=== PATIENT | male | born 1965 | race American Indian/Alaskan Native ===

== ENCOUNTER 2019-02-27 15:53 | Emergency (ER) | payer MEDICARE ==
--- NOTE | 2019-02-27 16:03 | Event Note ---
ED Screening Note Date of service: 02/27/19 Time: 15:58 ED Screening Note: This is a 53 y.o. M. that presents to the ER with suicidal thoughts. Patient was discharged from [facility]. PMH DM, HTN, HLD, and paranoid schizophrenia. Patient states he is out of medicine. Off medication for 1 month. Patient live in a transitional home. This initial assessment/diagnostic orders/clinical plan/treatment(s) is/are subject to change based on patients health status, clinical progression and re- assessment by fellow clinical providers in the ED. Further treatment and workup at subsequent clinical providers discretion. Patient/guardian urged not to elope from the ED as their condition may be serious if not clinically assessed and managed. Initial orders include: Labs
[2019-02-27 16:33] LABS: Basophils % (Auto) 0.7 % (0.0-1.8); Eosinophils % (Auto) 1.2 % (0.0-4.3); Hematocrit 39.6 % (35.5-45.6); Hemoglobin 13.5 gm/dl (11.8-15.2); Lymphocytes # (Auto) 1.1 K/mm3 (1.2-5.4); Lymphocytes % (Auto) 36.1 % (13.4-35.0); Mean Corpuscular HGB Conc 34 % (32-34); Mean Corpuscular Volume 89 fl (84-94); Monocytes # (Auto) 0.3 K/mm3 (0.0-0.8); Monocytes % (Auto) 11.4 % (0.0-7.3); Platelet Count 221 K/mm3 (140-440); Red Blood Count 4.47 M/mm3 (3.65-5.03); Red Cell Distribution Width 14.3 % (13.2-15.2)
[2019-02-27 17:03] LABS: BUN/Creatinine Ratio 14; Blood Urea Nitrogen 11 mg/dL (9-20); Calcium 9.6 mg/dL (8.4-10.2); Hemolysis Index 1
[2019-02-27] MEDS ORDERED: TYLENOL PO PRN (17:54)
[2019-02-27] MEDS ORDERED: MAG-OX PO STA (18:52)
--- NOTE | 2019-02-27 19:25 | Emergency Department Report ---
ED General Adult HPI - General Chief complaint: Medical Clearance Stated complaint: OFF MEDICATION Time Seen by Provider: 02/27/19 15:58 Source: patient, EMS (ems notes not available at time of chart dictation), RN notes reviewed, old records reviewed Mode of arrival: Ambulatory Limitations: No Limitations - History of Present Illness Initial comments: This is a 53-year-old gentleman. Patient is not known to this provider previously. The patient has a past medical history of diabetes, hypertension, high cholesterol and schizophrenia. He presents to the ER with complaint of depression and suicidality. He states that he might hurt himself but he does not have a plan. Apparently, he was just discharged from another hospital earlier on today. Patient orally asked to come to this emergency room for medication refill. He has chronic lower back pain. He denies sudden thunderclap headache. He denies chest pain and shortness of breath. Positive dry cough. No abdominal pain. No urinary symptoms. No extremity weakness or numbness. Of note, the patient appears to have a box of his belongings with him. Of note, the patient appears to be quite comfortable and calm. Patient states his depression and sensation of suicidality are constant, they are painless, they do not radiate anywhere, he states they do not have exacerbating relieving factors. -: Gradual Location: back (patient reports chronic aching paralumbar back pain present for 1-1/2 months.) Severity scale (0 -10): 0 Consistency: constant Improves with: none, immobilization - Related Data Allergies Allergy/AdvReac Type Severity Reaction Status Date / Time No Known Allergies Allergy Verified 02/27/19 18:58 ED Review of Systems ROS: Stated complaint: OFF MEDICATION Other details as noted in HPI Constitutional: denies: fever Eyes: denies: eye discharge ENT: denies: epistaxis Respiratory: cough Cardiovascular: denies: chest pain Gastrointestinal: denies: abdominal pain, nausea, vomiting Genitourinary: denies: dysuria Musculoskeletal: back pain Neurological: denies: weakness Psychiatric: depression, suicidal thoughts. denies: homicidal thoughts ED Past Medical Hx - Past Medical History Previous Medical History?: Yes Hx Hypertension: Yes Hx Diabetes: Yes Hx Psychiatric Treatment: Yes (parnoid schziophernia) Additional medical history: high cholesterol - Surgical History Past Surgical History?: Yes Additional Surgical History: left hip - Social History Smoking Status: Former Smoker Substance Use Type: None ED Physical Exam - General Limitations: No Limitations General appearance: alert, in no apparent distress - Head Head exam: Present: atraumatic, normocephalic - Eye Eye exam: Present: normal appearance, EOMI, other (visual acuity intact to finger counting, color perception, reading at a close distance). Absent: nystagmus - ENT ENT exam: Present: normal exam, normal orophraynx, mucous membranes moist, normal external ear exam - Neck Neck exam: Present: normal inspection, full ROM. Absent: tenderness, meningismus - Respiratory Respiratory exam: Present: normal lung sounds bilaterally. Absent: respiratory distress - Cardiovascular Cardiovascular Exam: Present: regular rate, normal rhythm, normal heart sounds. Absent: bradycardia, tachycardia, irregular rhythm, systolic murmur, diastolic murmur, rubs, gallop - GI/Abdominal GI/Abdominal exam: Present: soft. Absent: distended, tenderness, guarding, pulsatile mass - Rectal Rectal exam: Present: deferred - Extremities Exam Extremities exam: Present: normal inspection, full ROM, other (2+ pulses noted in the bilateral upper, lower extremities. Compartments soft. No long bony tenderness. The pelvis is stable.). Absent: pedal edema, joint swelling, calf tenderness - Back Exam Back exam: Present: normal inspection, full ROM. Absent: tenderness, CVA tenderness (R), CVA tenderness (L), paraspinal tenderness, vertebral tenderness - Neurological Exam Neurological exam: Present: alert, oriented X3, normal gait, other (Extraocular movements intact. Tongue midline. No facial droop. Facial sensation intact to light touch in the V1, V2, V3 distribution bilaterally. 5 and 5 strength in 4 extremities.. Sensation is intact to light touch in 4 extremities.). Absent: motor sensory deficit - Psychiatric Psychiatric exam: Present: suicidal ideation - Skin Skin exam: Present: warm, dry, intact, normal color. Absent: rash ED Course Vital Signs 02/27/19 02/27/19 02/27/19 15:57 17:18 19:23 Temperature 100 F H 99.1 F 98.7 F Pulse Rate 119 H 77 Respiratory 18 16 Rate Blood Pressure 135/70 121/75 [Right] O2 Sat by Pulse 98 97 Oximetry - Reevaluation(s) Reevaluation #1: 02/27/19 19:22 Differential diagnosis, including but not limited to: Depression, mood disorder, suicidality, secondary gain, malingering Assessment and plan: 53-year-old gentleman who was just evaluated at [facility] for reported suicidality, and discharged. The patient now presents with recurrent suicidality and depression. The patient's tachycardia has resolved. He does not have a fever on repeat exam. He is remarkably com fortable, and is quite cooperative. He is not agitated or belligerent. He also has a box of his belongings with him. Suspect secondary gain and/or malingering. Nevertheless, patient is placed on a 1013. We have requested screening laboratory studies which are unremarkable. Magnesium 1.6 reviewed and appreciated, and this is corrected. CK of 400 we'll decrease on its own with oral hydration, and does not require additional screening, or evaluation. He does not require IV fluids. The patient is alert and oriented, clinically sober without neck pain or neck stiffness, walks with a steady gait and has benign physical examination. EKG reviewed and appreciated, patient has not endorsed a ny signs or symptoms to suggest acute pericarditis. Current vital signs: Temperature 98.7F Blood pressure 121/75 mmHg O2 sat: 97% on room air Heart rate 77 bpm Respiratory rate 16 breaths per minute We have requested that nursing team perform a medication reconciliation. A psychiatric consultation has been requested. The case measured consultation has been requested. At this point in time, the patient does not appear to have an immediate medical contraindication to psychiatric admission, evaluation and consultation. Once medications have been reconciled, we will continue his current outpatient medications ED Medical Decision Making - Lab Data Result diagrams: 02/27/19 16:08 02/27/19 16:08 Vital Signs 02/27/19 02/27/19 15:57 17:18 Temperature 100 F H 99.1 F Pulse Rate 119 H Respiratory 18 Rate Blood Pressure 135/70 [Right] O2 Sat by Pulse 98 Oximetry Lab Results 02/27/19 02/27/19 02/27/19 Range/Units 16:08 16:08 16:08 WBC (4.5-11.0) K/mm3 RBC (3.65-5.03) M/mm3 Hgb (11.8-15.2) gm/dl Hct (35.5-45.6) % MCV (84-94) fl MCH (28-32) pg MCHC (32-34) % RDW (13.2-15.2) % Plt Count (140-440) K/mm3 Lymph % (Auto) (13.4-35.0) % Callahan % (Auto) (0.0-7.3) % Eos % (Auto) (0.0-4.3) % Baso % (Auto) (0.0-1.8) % Lymph # (1.2-5.4) K/mm3 Callahan # (0.0-0.8) K/mm3 Eos # (0.0-0.4) K/mm3 Baso # (0.0-0.1) K/mm3 Seg Neutrophils % (40.0-70.0) % Seg Neutrophils # (1.8-7.7) K/mm3 Sodium 141 (137-145) mmol/L Potassium 3.6 (3.6-5.0) mmol/L Chloride 103.0 (98-107) mmol/L Carbon Dioxide 26 (22-30) mmol/L Anion Gap 16 mmol/L BUN 11 (9-20) mg/dL Creatinine 0.8 (0.8-1.5) mg/dL Estimated GFR > 60 ml/min BUN/Creatinine Ratio 14 % Glucose 215 H (75-100) mg/dL Calcium 9.6 (8.4-10.2) mg/dL Magnesium (1.7-2.3) mg/dL Total Creatine Kinase (55-170) units/L Salicylates < 0.3 L (2.8-20.0) mg/dL Acetaminophen < 5.0 L (10.0-30.0) ug/mL Valproic Acid (50-100) ug/mL Plasma/Serum Alcohol (0-0.07) % 02/27/19 02/27/19 02/27/19 Range/Units 16:08 16:08 16:08 WBC 3.0 L (4.5-11.0) K/mm3 RBC 4.47 (3.65-5.03) M/mm3 Hgb 13.5 (11.8-15.2) gm/dl Hct 39.6 (35.5-45.6) % MCV 89 (84-94) fl MCH 30 (28-32) pg MCHC 34 (32-34) % RDW 14.3 (13.2-15.2) % Plt Count 221 (140-440) K/mm3 Lymph % (Auto) 36.1 H (13.4-35.0) % Callahan % (Auto) 11.4 H (0.0-7.3) % Eos % (Auto) 1.2 (0.0-4.3) % Baso % (Auto) 0.7 (0.0-1.8) % Lymph # 1.1 L (1.2-5.4) K/mm3 Callahan # 0.3 (0.0-0.8) K/mm3 Eos # 0.0 (0.0-0.4) K/mm3 Baso # 0.0 (0.0-0.1) K/mm3 Seg Neutrophils % 50.6 (40.0-70.0) % Seg Neutrophils # 1.5 L (1.8-7.7) K/mm3 Sodium (137-145) mmol/L Potassium (3.6-5.0) mmol/L Chloride (98-107) mmol/L Carbon Dioxide (22-30) mmol/L Anion Gap mmol/L BUN (9-20) mg/dL Creatinine (0.8-1.5) mg/dL Estimated GFR ml/min BUN/Creatinine Ratio % Glucose (75-100) mg/dL Calcium (8.4-10.2) mg/dL Magnesium (1.7-2.3) mg/dL Total Creatine Kinase (55-170) units/L Salicylates (2.8-20.0) mg/dL Acetaminophen (10.0-30.0) ug/mL Valproic Acid < 2.8 L (50-100) ug/mL Plasma/Serum Alcohol < 0.01 (0-0.07) % 02/27/19 Range/Units 17:44 WBC (4.5-11.0) K/mm3 RBC (3.65-5.03) M/mm3 Hgb (11.8-15.2) gm/dl Hct (35.5-45.6) % MCV (84-94) fl MCH (28-32) pg MCHC (32-34) % RDW (13.2-15.2) % Plt Count (140-440) K/mm3 Lymph % (Auto) (13.4-35.0) % Callahan % (Auto) (0.0-7.3) % Eos % (Auto) (0.0-4.3) % Baso % (Auto) (0.0-1.8) % Lymph # (1.2-5.4) K/mm3 Callahan # (0.0-0.8) K/mm3 Eos # (0.0-0.4) K/mm3 Baso # (0.0-0.1) K/mm3 Seg Neutrophils % (40.0-70.0) % Seg Neutrophils # (1.8-7.7) K/mm3 Sodium (137-145) mmol/L Potassium (3.6-5.0) mmol/L Chloride (98-107) mmol/L Carbon Dioxide (22-30) mmol/L Anion Gap mmol/L BUN (9-20) mg/dL Creatinine (0.8-1.5) mg/dL Estimated GFR ml/min BUN/Creatinine Ratio % Glucose (75-100) mg/dL Calcium (8.4-10.2) mg/dL Magnesium 1.60 L (1.7-2.3) mg/dL Total Creatine Kinase 447 H (55-170) units/L Salicylates (2.8-20.0) mg/dL Acetaminophen (10.0-30.0) ug/mL Valproic Acid (50-100) ug/mL Plasma/Serum Alcohol (0-0.07) % Vital Signs 02/27/19 02/27/19 02/27/19 15:57 17:18 19:23 Temperature 100 F H 99.1 F 98.7 F Pulse Rate 119 H 77 Respiratory 18 16 Rate Blood Pressure 135/70 121/75 [Right] O2 Sat by Pulse 98 97 Oximetry - EKG Data -: EKG Interpreted by Ms EKG shows normal: sinus rhythm Rate: normal - EKG Data When compared to previous EKG there are: previous EKG unavailable 02/27/19 19:25 This is a normal sinus rhythm, 74 bpm, normal axis, QTC within normal limits, borderline NE interval prolonged, EKG is not consistent with ST elevation myocardial infarction. There is no prior EKG available for comparison. Critical care attestation.: If time is entered above; I have spent that time in minutes in the direct care of this critically ill patient, excluding procedure time. ED Disposition Clinical Impression: Medical clearance for psychiatric admission Disposition: DC/TX-65 PSY HOSP/PSY UNIT Is pt being admited?: No Does the pt Need Aspirin: No Condition: Good Referrals: [facility] MD AUTUMN [Primary Care Provider] - 3-5 Days
[2019-02-27] MEDS: NORVASC PO SCH (21:52)
[2019-02-27] MEDS: BABY ASPIRIN PO SCH (21:56)
[2019-02-27] MEDS: GLUCOPHAGE PO SCH (21:57)
[2019-02-27] MEDS ORDERED: NON-FORMULARY (Metformin Hcl [Metformin] 1,000 MG) PO SCH (22:00)
[2019-02-27] MEDS ORDERED: NON-FORMULARY (Insulin Detemir [Levemir Vial] 25 UNIT) SQ SCH (22:00)
[2019-02-27] MEDS: LANTUS SUB-Q SCH (22:10)
[2019-02-28 00:18] LABS: Amphetamine Screen,Urine PRESUMPTIVE NEGATIVE; Benzodiazepines Screen,Urine PRESUMPTIVE NEGATIVE; Cannabinoid Screen,Urine PRESUMPTIVE NEGATIVE; Cocaine Screen,Urine PRESUMPTIVE NEGATIVE; Methadone Screen,Urine PRESUMPTIVE NEGATIVE; Opiate Screen,Urine PRESUMPTIVE NEGATIVE
[2019-02-28 00:19] LABS: Bacteria,Urine 1+ /HPF (Negative); Bilirubin,Urine NEG (Negative); Blood,Urine NEG (Negative); Color,Urine Yellow (Yellow); Mucus,Urine 2+ /HPF; Protein,Urine <15 mg/dL mg/dL (Negative)
[2019-02-28] MEDS ORDERED: KEFLEX PO ONE (04:38)
[2019-02-28] MEDS: HumaLOG SUB-Q SCH ×3 (08:56→17:52)
[2019-02-28] MEDS: GLUCOPHAGE PO SCH ×2 (10:30→22:30)
[2019-02-28] MEDS: NORVASC PO SCH (10:30)
[2019-02-28] MEDS: BABY ASPIRIN PO SCH (10:30)
[2019-02-28] MEDS: KEFLEX PO SCH ×2 (10:30→22:30)
--- NOTE | 2019-02-28 19:25 | Consultation ---
History of Present Illness - Reason for Consult Consult date: 02/28/19 Reason for consult: psychiatric evaluation - Chief Complaint Chief complaint: "I was released off the ACT team at [place]." 53 year old AA male seen for psychiatric evaluation in the ER. He presented to the ER via [employer] after being discharged from [place]. His chief complaint was suicidal ideation. He says the ACT team at [place] discharged him last week because of unpaid bills. He says billing has been an issue and then talked about how he was supposed to get money from sending referrals for [facility]. Speech is rapid and thought content is grandiose and illogical at times. He lives in a transitional home, [facility], and attends a day program. His sister is his payee. When asked if he is suicidal, he states "I walked it off." He says he has been on antipsychotics since age 23 and at that time, "I had a nervous breakdown." He also says he is a slow learner. He has involuntary facial movements/tongue thrusting/lip smacking. Medications and Allergies Allergies Allergy/AdvReac Type Severity Reaction Status Date / Time No Known Allergies Allergy Verified 02/27/19 18:58 Home Medications Medication Instructions Recorded Confirmed Last Taken Type Aspirin [Aspirin BABY CHEW TAB] 81 mg PO QDAY 02/27/19 02/27/19 Unknown History AtorvaSTATin [Lipitor] 40 mg PO QHS 02/27/19 02/27/19 Unknown History Divalproex ER [DepaKOTE ER] 500 mg PO QDAY 02/27/19 02/27/19 Unknown History Insulin Detemir [Levemir VIAL] 25 unit SQ QHS 02/27/19 02/27/19 Unknown History Lispro Insulin [HumaLOG] 2 unit SQ [facility] 02/27/19 02/27/19 Unknown History Ben Arnold Carbonate [Ben Arnold 450 BID 02/27/19 Unknown History Carbonate ER] Metformin HCl [metFORMIN] 1,000 mg PO BID 02/27/19 02/27/19 Unknown History Quetiapine Fumarate [Seroquel Xr] 200 mg PO HS 02/27/19 02/27/19 Unknown History amLODIPine [Norvasc] 10 mg PO DAILY 02/27/19 02/27/19 Unknown History risperiDONE [Risperdal] 4 mg PO HS 02/27/19 02/27/19 Unknown History traZODone [Desyrel] 50 mg PO QHS 02/27/19 02/27/19 Unknown History Active Meds: Active Medications Acetaminophen (Tylenol) 650 mg PO Q6HR PRN PRN Reason: Pain Amlodipine Besylate (Norvasc) 10 mg PO DAILY [facility]END[facility] S[facility] TO [facility] Last Admin: 02/28/19 10:30 Dose: 10 mg Documented by: Aspirin (Baby Aspirin) 81 mg PO QDAY [facility]END[facility] S[facility] Last Admin: 02/28/19 10:30 Dose: 81 mg Documented by: Atorvastatin Calcium (Lipitor) 40 mg PO QHS [facility] Last Admin: 02/27/19 21:57 Dose: 40 mg Documented by: Cephalexin (Keflex) 500 mg PO BID [facility] Stop: 03/04/19 05:57 Last Admin: 02/28/19 10:30 Dose: 500 mg Documented by: Divalproex Sodium (Depakote Er) 500 mg PO QDAY [facility] S[facility] Last Admin: 02/28/19 10:30 Dose: 500 mg Documented by: Haloperidol Lactate (Haldol) 5 mg IM Q6HR PRN PRN Reason: Agitation Insulin Glargine ([facility]us) [facility] Last Admin: 02/27/19 22:10 Dose: 25 units Documented by: Insulin Human Lispro (Humalog) 2 unit SUB-Q [facility] Last Admin: 02/28/19 17:52 Dose: 2 unit Documented by: Lorazepam (Ativan) 2 mg IM Q4HR PRN PRN Reason: Agitation Metformin HCl (Glucophage) 1,000 mg PO BID [facility]END[facility] Last Admin: 02/28/19 10:30 Dose: 1,000 mg Documented by: Past psychiatric history - Past Medical History Past Medical History: diabetes, hypertension - past Psychiatric treatment and history Psych: Bipolar, Schizophrenia psychiatric treatment history: long history of mental health treatment - Social History Social history: other (lives in transitional home) Mental Status Exam - Vital signs Last Vital Signs Temp 98.8 F 02/28/19 13:32 Pulse 96 H 02/28/19 10:30 Resp 20 02/28/19 13:32 BP 143/85 02/28/19 13:32 Pulse Ox 99 02/28/19 13:32 - Exam Orientation: time, place, person Affect: other (constricted) Mood: anxious Thought content: delusions, grandiose, other (SI/no HI) Thought Process: Loose Associations Perceptions: auditory, hallucinations Speech: rapid Concentration: distractible Motor activity: other (TD symptoms) Level of consciousness: alert Memory: Intact Sleep Symptoms: Difficulty Falling Asleep Appetite: increased Interaction: cooperative Results Result Diagrams: 02/27/19 16:08 02/27/19 16:08 Abnormal lab results 02/27/19 02/27/19 02/28/19 Range/Units 22:01 23:54 08:57 POC Glucose 177 H 189 H (70-105) Urine WBC (Auto) 17.0 H (0.0-6.0) /HPF 02/28/19 Range/Units 12:26 POC Glucose 174 H (70-105) Urine WBC (Auto) (0.0-6.0) /HPF All other labs normal. Assessment and Plan Assessment and plan: Impression: schizoaffective disorder, bipolar type per hx tardive dyskinesia ---discuss treatment with outpatient psychiatrist. [facility] or Ingrezza is not available. Psych will treat the presenting complaint and psychotic/manic presentation. He is established with day treatment services contact [facility] [phone] Family support(payee) is sister Betsy Boogie [phone] ck 447 UDS neg Recommendation: depakote dr 500mg bid for mood stabilization risperdal 1mg hs for psychosis ER staff to manage his medical comorbidities Hydration encouraged. Continue 1013 dispo: inpatient psychiatric facility staffed with Dr. Collins.
[2019-02-28] MEDS: LANTUS SUB-Q SCH (21:54)
[2019-02-28] MEDS: RisperDAL PO SCH (22:31)
[2019-03-01] MEDS: ATIVAN IM PRN ×2 (02:09→16:19)
[2019-03-01] MEDS: HumaLOG SUB-Q SCH ×3 (07:30→17:29)
[2019-03-01 10:26] LABS: Alanine Aminotransferase 22 units/L (7-56)
[2019-03-01] MEDS: KEFLEX PO SCH ×2 (11:15→23:35)
[2019-03-01] MEDS: BABY ASPIRIN PO SCH (11:15)
[2019-03-01] MEDS: GLUCOPHAGE PO SCH ×2 (11:52→23:34)
[2019-03-01] MEDS: NORVASC PO SCH (11:53)
--- NOTE | 2019-03-01 12:45 | Progress Note ---
Subjective - Reason for Consult Consult date: 03/01/19 Reason for consult: Psychiatry Follow-up - Chief Complaint Chief complaint: "I want more independence" 53 year old AA male seen for psychiatric evaluation in the ER. Today the patent was calm and cooperative during the assessment. He stated that he want more 'independence. He stated that he would like to handle his own money as well. He has a payee currently. Per collateral information from [employer] (Day Veterinary Laboratory Technician) at [phone], he stated that the patient is his client. He stated that patient have not been on medication in a few weeks. He stated that the patient is known to be stable if medication compliant. He stated that the patient will be seen by Dr Timmons for outpatient psy services once discharged. The patient denies SI/HI's and AVH's. He denies any side effects o f his medications. Mental Status Exam - Vital signs Last Vital Signs Temp 98.4 F 03/01/19 07:00 Pulse 76 03/01/19 11:53 Resp 18 03/01/19 07:00 BP 134/72 03/01/19 11:53 Pulse Ox 98 03/01/19 07:00 - Exam Narrative exam: MSE: Appearance: calm, cooperative Behavior: regular eye contact Speech: regular rate and tone Mood: "okay" Affect: congruent to mood Thought Process: circumstantial Thought Content: denies SI/HI's and AVH's Motor Activity: sitting up in bed, no involuntary movement noted Cognition: A/O x3 Insight: variable Judgment: variable to fair Assessment and Plan Impression: SCAD per the patient. Today the patient was calm and cooperative during the assessment. UDS is negative. DDx: Somatic Symptom DO. Substance Induced Mood DO recommendation/Plan: Reevaluate the patient's 1013 in 24 hours. Continue Depakote 500 mg PO BID for mood and Risperdal 1 mg PO HS for psychosis/mood. Discussed possible metabolic side effects of Risperdal, he verbalized understanding. Ordered baseline A1C and Lipid Panel. Dipso: If the patient's 1013 is rescinded in 24, he can follow up with Dr Timmons for outpatient psy services. . Will staff with Dr Shasta Collins.
--- NOTE | 2019-03-01 13:20 | Progress Note ---
Subjective - Reason for Consult Consult date: 03/01/19 Reason for consult: Psychiatry Follow-up - Chief Complaint Chief complaint: "I want more independence" 53 year old AA male seen for psychiatric evaluation in the ER. Today the patent was calm and cooperative during the assessment. He stated that he want more 'independence. He stated that he would like to handle his own money as well. He has a payee currently. Per collateral information from [employer] (Day Container Finishing Inspector) at [phone], he stated that the patient is his client. He stated that patient have not been on medication in a few weeks. He stated that the patient is known to be stable if medication compliant. He stated that the patient will be seen by Dr Timmons for outpatient psy services once discharged. The patient denies SI/HI's and AVH's. He denies any side effects o f his medications. Mental Status Exam - Vital signs Last Vital Signs Temp 98.4 F 03/01/19 07:00 Pulse 76 03/01/19 11:53 Resp 18 03/01/19 07:00 BP 134/72 03/01/19 11:53 Pulse Ox 98 03/01/19 07:00 - Exam Narrative exam: MSE: Appearance: calm Behavior: regular eye contact Speech: regular rate and tone Mood: "okay" Affect: congruent to mood Thought Process: circumstantial Thought Content: denies SI/HI's and AVH's Motor Activity: sitting up in bed Cognition: A/O x3 Insight: variable to fair Judgment: variable to fair n Assessment and Plan Impression: SCAD per the patient. Today the patient was calm and cooperative during the assessment. UDS is negative. DDx: Somatic Symptom DO. Substance Induced Mood DO recommendation/Plan: Reevaluate the patient's 1013 in 24 hours. Continue Depakote 500 mg PO BID for mood and Risperdal 1 mg PO HS for psychosis/mood. Discussed possible metabolic side effects of Risperdal, he verbalized understanding. Ordered baseline A1C and Lipid Panel. Dipso: If the patient's 1013 is rescinded in 24, he can follow up with Dr Timmons for outpatient psy services. . Will staff with Dr Shasta Collins.
[2019-03-01] MEDS: LANTUS SUB-Q SCH (23:21)
[2019-03-01] MEDS: RisperDAL PO SCH (23:35)
[2019-03-02] MEDS: HALDOL IM PRN ×3 (05:54→17:38)
[2019-03-02] MEDS: HumaLOG SUB-Q SCH ×2 (08:17→11:30)
[2019-03-02] MEDS: ATIVAN IM PRN ×2 (08:33→17:38)
[2019-03-02 08:45] LABS: Chol/HDL Ratio 2.14 %
--- NOTE | 2019-03-02 11:29 | Progress Note ---
Subjective - Reason for Consult Consult date: 03/02/19 Reason for consult: Psyhiatry Follow-up - Chief Complaint Chief complaint: "I want more independence" 53 year old AA male seen for psychiatric evaluation in the ER. Today the patent was calm during the assessment. The patient has loose associations and had to be redirected several times to keep him on topic. Per the staff, the patient was discussing evangelical content throughout the night. The patient was asked about his sleep, his answers were not logical. He denies SI/HI's and VH's. He stated that he see "shadows." No indications of side effects from is medications. Mental Status Exam - Vital signs Last Vital Signs Temp 98.5 F 03/02/19 08:57 Pulse 107 H 03/02/19 08:57 Resp 22 03/02/19 08:57 BP 139/90 03/02/19 08:57 Pulse Ox 97 03/02/19 08:57 - Exam Narrative exam: MSE: Appearance: calm Behavior: regular eye contact Speech: regular rate and tone Mood: "okay" Affect: congruent to mood Thought Process: loose associations Thought Content: denies SI/HI's and AH's, hyper evangelical Motor Activity: sitting up in bed, no involuntary movement noted Cognition: A/O x3 Insight: poor Judgment: variable Assessment and Plan Impression: SCAD per the patient. Today the patient was calm during the assessment. UDS is negative. DDx: Somatic Symptom DO. Substance Induced Mood DO recommendation/Plan: Continue 1013, Depakote 500 mg PO BID for mood and Risperdal 1 mg PO HS for psychosis/mood. Discussed possible metabolic side effects of Risperdal, he verbalized understanding. Dipso: The patient was referred to inpatient psy services. . Staffed with Dr Shasta Collins.
[2019-03-02] MEDS: BABY ASPIRIN PO SCH (11:31)
[2019-03-02] MEDS: KEFLEX PO SCH ×2 (11:34→23:04)
[2019-03-02] MEDS: NORVASC PO SCH (11:34)
[2019-03-02] MEDS: GLUCOPHAGE PO SCH ×2 (11:34→22:58)
[2019-03-02] MEDS: LANTUS SUB-Q SCH (23:04)
[2019-03-03] MEDS: HumaLOG SUB-Q SCH ×3 (07:36→17:30)
[2019-03-03] MEDS: GLUCOPHAGE PO SCH ×2 (11:57→22:21)
[2019-03-03] MEDS: BABY ASPIRIN PO SCH (11:57)
[2019-03-03] MEDS: KEFLEX PO SCH ×2 (11:58→22:22)
[2019-03-03] MEDS: NORVASC PO SCH (11:58)
--- NOTE | 2019-03-03 13:37 | Progress Note ---
Subjective - Reason for Consult Consult date: 03/03/19 Reason for consult: Psychiatric Follow-up Evaluation - Chief Complaint Chief complaint: "I'm okay." Patient is a 53 year old AA male seen for psychiatric follow-up evaluation in the ER. Today the patent is calm and cooperative during the assessment. He reports " my mood has been chaotic. They had to give me something to calm me down.." He continues to have loose associations and has to be redirected several times to keep him on topic. He verbalizes that his sleep has improved. He reports good appetite. He endorses A/VH's of animal noises. Per patient " I may hear a dog barking. I see animals. " Patient denies SI/HI's and delusions. Patient is compliant with medication. No indications of side effects from his medications. Mental Status Exam - Vital signs Last Vital Signs Temp 97.8 F 03/03/19 08:02 Pulse 86 03/03/19 11:58 Resp 18 03/03/19 08:02 BP 142/78 03/03/19 11:58 Pulse Ox 98 03/03/19 08:02 - Exam Narrative exam: Mental Status Exam Appearance: calm, cooperative Behavior: regular eye contact Speech: regular rate and tone Mood: "I'm okay"; labile mood Affect: congruent to mood Thought Process: loose associations, tangential/disorganized Thought Content: denies SI/HI's; + A/VH's, hyper orthodoxy Motor Activity: ambulatory Cognition: A/O x 2 ( person, place) Insight: poor Judgment: variable Assessment and Plan Impression: SCAD per the patient. Today the patient is calm and cooperative during the assessment. UDS is negative. DDx: Somatic Symptom DO. Substance Induced Mood DO Recommendation/Plan: 1. Continue 1013. 2. Continue Depakote 500 mg PO BID for mood . 3. Increase Risperdal 2 mg PO HS for psychosis/mood. Discussed possible metabolic side effects of Risperdal, patient verbalizes understanding. Disposition: The patient was referred to inpatient psy services. Will staff with Dr Shasta Collins.
[2019-03-03] MEDS: LANTUS SUB-Q SCH (22:25)
[2019-03-04] MEDS: HumaLOG SUB-Q SCH ×2 (09:04→12:06)
[2019-03-04] MEDS: GLUCOPHAGE PO SCH (11:00)
[2019-03-04] MEDS: BABY ASPIRIN PO SCH (11:00)
--- NOTE | 2019-03-04 11:12 | Progress Note ---
Subjective - Reason for Consult Consult date: 03/04/19 Reason for consult: Psychiatry Follow-up - Chief Complaint Chief complaint: "I hear the voices" 53 year old AA male seen for psychiatric evaluation in the ER. Today the patent was calm during the assessment. Today the patient continue to state that he is hearing voices from animals. He adamant about discussing "Genensis" reference the bible throughout the interview. He had to be reidirected to keep him on topic. He denies SI/HI's and VH's. No indications of side effect from his medications. Mental Status Exam - Vital signs Last Vital Signs Temp 98.6 F 03/04/19 07:00 Pulse 99 H 03/04/19 07:00 Resp 18 03/04/19 07:00 BP 158/92 03/04/19 07:00 Pulse Ox 97 03/04/19 07:00 - Exam Narrative exam: MSE: Appearance: calm Behavior: regular eye contact Speech: regular rate and tone Mood: "okay" Affect: congruent to mood Thought Process: loose associations Thought Content: denies SI/HI's and VH's, hyper cheondoism Motor Activity: sitting up in bed, no involuntary movement noted Cognition: A/O x3 Insight: poor Judgment: variable Assessment and Plan Impression: SCAD per the patient. Today the patient was calm during the assessment. UDS is negative. DDx: Somatic Bipolar DO, Schizophrenia recommendation/Plan: Continue 1013, Depakote 500 mg PO BID for mood and Risperdal 1 mg PO HS for psychosis/mood. Discussed possible metabolic side effects of Risperdal, he verbalized understanding. Dipso: The patient was accepted at [facility] for inpatient psy services. . Staffed with Dr Shasta Collins.
[2019-03-04] MEDS ORDERED: ALUM-MAG HYDROX-SIMETH 200-200-20MG/5ML PO ONE (11:25)
[2019-03-04] MEDS ORDERED: LIDOCAINE VISCOUS 2% PO ONE (11:26)
[2019-03-04] MEDS: NORVASC PO SCH (12:05)
[2019-03-04 12:06] VITALS: BP 162/92
== END 2019-03-04 12:19 ==
LOC: EEVIPCON 15:53 → ED 15:53
DX: F25.0 Schizoaffective disorder, bipolar type (principal); I10 Essential (primary) hypertension; E11.9 Type 2 diabetes mellitus without complications; E78.00 Pure hypercholesterolemia, unspecified; Z87.891 Personal history of nicotine dependence
CPT/HCPCS: 36415; 80048; 80061; 80164; 80307; 81001; 82150; 82550; 82962; 83036; 83690; 83735; 84075; 84146; 84450; 84460; 85025; 87086; 93005; 93010; 96372; 99285; A9270; J1630; J2060; 80320; G0480; J1815

== ENCOUNTER 2019-03-13 20:21 | Emergency (ER) | payer MEDICARE ==
[2019-03-13 20:35] VITALS: BP 140/83
== END 2019-03-13 20:40 | disposition left against medical advice (07) ==
LOC: ED 20:21
DX: Z76.0 Encounter for issue of repeat prescription (principal); Z53.21 Procedure and treatment not carried out due to patient leaving prior to being seen by health care provider

== ENCOUNTER 2019-03-14 01:10 | Emergency (ER) | payer MEDICARE ==
[2019-03-14 01:20] VITALS: BP 113/76
--- NOTE | 2019-03-14 03:15 | Emergency Department Report ---
ED Recheck HPI - General Chief Complaint: Medical Clearance Stated Complaint: MED REFILL Time Seen by Provider: 03/14/19 02:39 Source: patient Mode of arrival: Ambulatory Limitations: No Limitations - History of Present Illness Initial Comments: Patient is a 53-year-old male who presents the emergency room for a medication refill. Patient states that he has not had his insulin or his psychiatric medications since 03/04/19 when he was released from [facility]. States his only symptoms is that he has had some difficulty sleeping the last couple of days. pt is still getting sleep at night. Patient denies any back pain, neck pain, chest pain, headache, shortness of breath, any other symptoms. He denies any SI, HI, or hallucinations. Patient states that states that [facility] has his medications. he states [facility] is closed on the weekends. He states that they only filled his "regular medical problem" medications. He states that he is waiting for the rest of them to be delivered. He states he is taking his other medications including metformin. - Related Data Home Medications Medication Instructions Recorded Confirmed Last Taken Aspirin [Aspirin BABY CHEW TAB] 81 mg PO QDAY 02/27/19 03/14/19 03/04/19 AtorvaSTATin [Lipitor] 40 mg PO QHS 02/27/19 03/14/19 03/04/19 Divalproex ER [DepaKOTE ER] 500 mg PO QDAY 02/27/19 03/14/19 03/04/19 [place] Carbonate [Walthill 450 mg PO BID 02/27/19 03/14/19 03/04/19 Carbonate ER] Metformin HCl [metFORMIN] 1,000 mg PO BID 02/27/19 03/14/19 03/13/19 Quetiapine Fumarate [Seroquel Xr] 200 mg PO HS 02/27/19 03/14/19 02/25/19 amLODIPine [Norvasc] 10 mg PO DAILY 02/27/19 03/14/19 Unknown risperiDONE [Risperdal] 4 mg PO HS 02/27/19 03/14/19 Unknown traZODone [Desyrel] 50 mg PO QHS 02/27/19 03/14/19 03/13/19 Previous Rx's Medication Instructions Recorded Last Taken Type Insulin Detemir [Levemir VIAL] 25 unit SQ QHS #1 vial 03/14/19 Unknown Rx Lispro Insulin [HumaLOG] 2 unit SQ QAC #32 units 03/14/19 Unknown Rx Allergies Allergy/AdvReac Type Severity Reaction Status Date / Time No Known Allergies Allergy Verified 02/27/19 18:58 ED Review of Systems ROS: Stated complaint: MED REFILL Other details as noted in HPI Comment: All other systems reviewed and negative ED Past Medical Hx - Past Medical History Previous Medical History?: Yes Hx Hypertension: Yes Hx Diabetes: Yes Hx Psychiatric Treatment: Yes (parnoid schziophernia) Additional medical history: high cholesterol - Surgical History Past Surgical History?: Yes Additional Surgical History: left hip - Social History Smoking Status: Former Smoker Substance Use Type: None - Medications Home Medications: Home Medications Medication Instructions Recorded Confirmed Last Taken Type Aspirin [Aspirin BABY CHEW TAB] 81 mg PO QDAY 02/27/19 03/14/19 03/04/19 History AtorvaSTATin [Lipitor] 40 mg PO QHS 02/27/19 03/14/19 03/04/19 History Divalproex ER [DepaKOTE ER] 500 mg PO QDAY 02/27/19 03/14/19 03/04/19 History [place] Carbonate [Walth[place] 450 mg PO BID 02/27/19 03/14/19 03/04/19 History Carbonate ER] Metformin HCl [metFORMIN] 1,000 mg PO BID 02/27/19 03/14/19 03/13/19 History Quetiapine Fumarate [Seroquel Xr] 200 mg PO HS 02/27/19 03/14/19 02/25/19 History amLODIPine [Norvasc] 10 mg PO DAILY 02/27/19 03/14/19 Unknown History risperiDONE [Risperdal] 4 mg PO HS 02/27/19 03/14/19 Unknown History traZODone [Desyrel] 50 mg PO QHS 02/27/19 03/14/19 03/13/19 History Insulin Detemir [Levemir VIAL] 25 unit SQ QHS #1 vial 03/14/19 Unknown Rx Lispro Insulin [HumaLOG] 2 unit SQ QAC #32 units 03/14/19 Unknown Rx ED Physical Exam - General Limitations: No Limitations General appearance: alert, in no apparent distress - Head Head exam: Present: atraumatic, normocephalic - Eye Eye exam: Present: normal appearance, PERRL, EOMI. Absent: nystagmus, periorbital swelling, periorbital tenderness - ENT ENT exam: Present: mucous membranes moist - Respiratory Respiratory exam: Present: normal lung sounds bilaterally. Absent: respiratory distress, wheezes, rales, rhonchi, stridor, accessory muscle use, decreased breath sounds, prolonged expiratory - Cardiovascular Cardiovascular Exam: Present: regular rate, normal rhythm, normal heart sounds. Absent: systolic murmur, diastolic murmur, rubs, gallop - Neurological Exam Neurological exam: Present: alert, oriented X3 - Expanded Neurological Exam Expanded Patient oriented to: Present: person, place, time Speech: Present: fluid speech Cerebellar function: Finger to Nose: Normal, Heel to Brunson: Normal Motor strength exam: RUE: 5, LUE: 5, RLE: 5, LLE: 5 - Psychiatric Psychiatric exam: Present: normal affect, normal mood - Skin Skin exam: Present: warm, dry, intact ED Course Vital Signs 03/14/19 03/14/19 01:17 03:48 Temperature 98.6 F Pulse Rate 89 70 Respiratory 20 16 Rate Blood Pressure 113/76 O2 Sat by Pulse 97 Oximetry ED Recheck MDM - Medical Decision Making Patient is a 53-year-old male who presents the emergency room for a medication refill. Patient states that he has not had his insulin or his psychiatric medications since 03/04/19 when he was released from [facility]. States his only symptoms is that he has had some difficulty sleeping the last couple of days. pt is still getting sleep at night. Patient denies any back pain, neck pain, chest pain, headache, shortness of breath, any other symptoms. He denies any SI, HI, or hallucinations. Patient states that states that [facility] has his medications. he states [facility] is closed on the weekends. He states that they only filled his "regular medical problem" medications. He states that he is waiting for the rest of them to be delivered. He states he is taking his other medications including metformin. vitals are normal. advised pt that we do not refill psychiatric medications from the emergency department and that he needs to be seen by [facility]. these medications should be prescribed and monitored by psychiatrist. will refill pts insulin according to his MAR which was updated last week. advised pt to please take medication as you are prescribed. Please make sure that you take your blood sugar prior to using the insulin. Follow up with a primary care doctor in the next 2-3 days to receive refills of your medications and to have your medications and chronic health conditions monitored. Follow-up with the [facility] Department to receive the refills for your psychiatric medications and to have these medications monitored and your psychiatric condition monitored. Please picker your medications that you already have [facility] once they open. Return to the emergency room for any new or worsening symptoms. Critical care attestation.: If time is entered above; I have spent that time in minutes in the direct care of this critically ill patient, excluding procedure time. ED Disposition Clinical Impression: Medication refill Disposition: TO HOME OR SELFCARE Is pt being admited?: No Does the pt Need Aspirin: No Condition: Stable Additional Instructions: Please take medication as you are prescribed. Please make sure that you take your blood sugar prior to using the insulin. Follow up with a primary care doctor in the next 2-3 days to receive refills of your medications and to have your medications and chronic health conditions monitored. Follow-up with the [facility] Department to receive the refills for your psychiatric medications and to have these medications monitored and your psychiatric condition monitored. Please picker your medications that you already have waiting for you at [facility] once they open. Return to the emergency room for any new or worsening symptoms. Prescriptions: Insulin Detemir [Levemir VIAL] 25 unit SQ QHS #1 vial Lispro Insulin [HumaLOG] 2 unit SQ QAC #32 units Referrals: [facility] [Provider Group] - 2-3 Days [facility] [Outside] - 2-3 Days Forms: Work/School Release Form(ED) Time of Disposition: 03:17 Print Language: SAMI
== END 2019-03-14 03:48 | disposition home or self-care (01) ==
LOC: ED 01:10
DX: I10 Essential (primary) hypertension (principal); E11.9 Type 2 diabetes mellitus without complications; F20.0 Paranoid schizophrenia; E78.00 Pure hypercholesterolemia, unspecified; Z76.0 Encounter for issue of repeat prescription; Z79.4 Long term (current) use of insulin; Z79.899 Other long term (current) drug therapy; Z79.82 Long term (current) use of aspirin
CPT/HCPCS: 99281

== ENCOUNTER 2019-04-09 21:45 | Emergency (ER) | payer MEDICARE ==
--- NOTE | 2019-04-09 22:17 | Event Note ---
ED Screening Note Date of service: 04/09/19 Time: 22:12 ED Screening Note: This is a 53 y.o. M. that presents to the ER for medication refills. Patient states he was discharged from [facility] 3 days ago. Patient states he has insomnia and don't think he can make it until Friday. Denies SI/HI. This initial assessment/diagnostic orders/clinical plan/treatment(s) is/are subject to change based on patients health status, clinical progression and re- assessment by fellow clinical providers in the ED. Further treatment and workup at subsequent clinical providers discretion. Patient/guardian urged not to elope from the ED as their condition may be serious if not clinically assessed and man aged. Initial orders include: Labs
[2019-04-09 23:27] LABS: Hematocrit 41.4 % (35.5-45.6); Hemoglobin 13.9 gm/dl (11.8-15.2); Mean Corpuscular HGB Conc 34 % (32-34); Mean Corpuscular Volume 90 fl (84-94); Platelet Count 187 K/mm3 (140-440); Red Blood Count 4.58 M/mm3 (3.65-5.03); Red Cell Distribution Width 14.5 % (13.2-15.2)
[2019-04-09 23:47] LABS: BUN/Creatinine Ratio 13; Blood Urea Nitrogen 12 mg/dL (9-20); Calcium 9.2 mg/dL (8.4-10.2); Hemolysis Index 11
[2019-04-10 00:11] LABS: Bilirubin,Urine NEG (Negative); Blood,Urine NEG (Negative); Color,Urine Yellow (Yellow); Mucus,Urine FEW /HPF; Protein,Urine <15 mg/dL mg/dL (Negative); Urobilinogen,Urine < 2.0 mg/dL (<2.0)
--- NOTE | 2019-04-10 00:26 | Emergency Department Report ---
ED General Adult HPI - General Chief complaint: Psych Stated complaint: MH Time Seen by Provider: 04/09/19 22:12 Source: patient, EMS Mode of arrival: Ambulatory Limitations: No Limitations - History of Present Illness Initial comments: Patient presents to the emergency department from a local facility for excessive bleeding and crying. There is also concerned that the patient is hearing animals cry as well. Patient has a history of schizophrenia and asked to take his medications upon arrival. The patient took his Geodon and Depakote while in the ED. Patient has no complaints and denies any homicidal or suicidal ideation. -: unknown Improves with: none Worsens with: none Associated Symptoms: denies other symptoms Treatments Prior to Arrival: none - Related Data Home Medications Medication Instructions Recorded Confirmed Last Taken Aspirin [Aspirin BABY CHEW TAB] 81 mg PO QDAY 02/27/19 04/09/19 03/04/19 AtorvaSTATin [Lipitor] 40 mg PO QHS 02/27/19 04/09/19 03/04/19 Divalproex ER [DepaKOTE ER] 500 mg PO QAM 02/27/19 04/09/19 04/09/19 22:00 [place] Carbonate [[place] 450 mg PO BID 02/27/19 04/09/19 03/04/19 Carbonate ER] Metformin HCl [metFORMIN] 1,000 mg PO BID 02/27/19 04/09/19 03/13/19 Quetiapine Fumarate [Seroquel Xr] 200 mg PO HS 02/27/19 04/09/19 02/25/19 amLODIPine [Norvasc] 10 mg PO DAILY 02/27/19 04/09/19 Unknown risperiDONE [Risperdal] 4 mg PO HS 02/27/19 04/09/19 Unknown traZODone [Desyrel] 50 mg PO QHS 02/27/19 04/09/19 03/13/19 Divalproex ER [DepaKOTE ER] 750 mg PO HS 04/09/19 04/09/19 04/09/19 22:00 Ziprasidone HCl [Geodon] 160 mg PO HS 04/09/19 04/09/19 04/09/19 22:00 Previous Rx's Medication Instructions Recorded Last Taken Type Insulin Detemir [Levemir VIAL] 25 unit SQ QHS #1 vial 03/14/19 Unknown Rx Lispro Insulin [HumaLOG] 2 unit SQ QAC #32 units 03/14/19 Unknown Rx Allergies Allergy/AdvReac Type Severity Reaction Status Date / Time No Known Allergies Allergy Verified 02/27/19 18:58 ED Review of Systems ROS: Stated complaint: MH Other details as noted in HPI Comment: All other systems reviewed and negative Constitutional: denies: chills, fever Eyes: denies: eye pain, eye discharge, vision change ENT: denies: ear pain, throat pain Respiratory: denies: cough, shortness of breath, wheezing Cardiovascular: denies: chest pain, palpitations Endocrine: no symptoms reported Gastrointestinal: denies: abdominal pain, nausea, diarrhea Genitourinary: denies: urgency, dysuria Musculoskeletal: denies: back pain, joint swelling, arthralgia Skin: denies: rash, lesions Neurological: denies: headache, weakness, paresthesias Psychiatric: denies: anxiety, depression Hematological/Lymphatic: denies: easy bleeding, easy bruising ED Past Medical Hx - Past Medical History Previous Medical History?: Yes Hx Hypertension: Yes Hx Diabetes: Yes Hx Psychiatric Treatment: Yes (wong may) Additional medical history: high cholesterol - Surgical History Past Surgical History?: Yes Additional Surgical History: left hip - Social History Smoking Status: Never Smoker Substance Use Type: None - Medications Home Medications: Home Medications Medication Instructions Recorded Confirmed Last Taken Type Aspirin [Aspirin BABY CHEW TAB] 81 mg PO QDAY 02/27/19 04/09/19 03/04/19 History AtorvaSTATin [Lipitor] 40 mg PO QHS 02/27/19 04/09/19 03/04/19 History Divalproex ER [DepaKOTE ER] 500 mg PO QA 02/27/19 04/09/19 04/09/19 22:00 History [place] Carbonate [[place] 450 mg PO BID 02/27/19 04/09/19 03/04/19 History Carbonate ER] Metformin HCl [metFORMIN] 1,000 mg PO BID 02/27/19 04/09/19 03/13/19 History Quetiapine Fumarate [Seroquel Xr] 200 mg PO HS 02/27/19 04/09/19 02/25/19 History amLODIPine [Norvasc] 10 mg PO DAILY 02/27/19 04/09/19 Unknown History risperiDONE [Risperdal] 4 mg PO HS 02/27/19 04/09/19 Unknown History traZODone [Desyrel] 50 mg PO QHS 02/27/19 04/09/19 03/13/19 History Insulin Detemir [Levemir VIAL] 25 unit SQ QHS #1 vial 03/14/19 04/09/19 Unknown Rx Lispro Insulin [HumaLOG] 2 unit SQ QAC #32 units 03/14/19 04/09/19 Unknown Rx Divalproex ER [DepaKOTE ER] 750 mg PO HS 04/09/19 04/09/19 04/09/19 22:00 History Ziprasidone HCl [Geodon] 160 mg PO HS 04/09/19 04/09/19 04/09/19 22:00 History ED Physical Exam - General Limitations: No Limitations General appearance: alert, in no apparent distress, other (sleeping but easily arousable) - Head Head exam: Present: atraumatic, normocephalic - Eye Eye exam: Present: normal appearance - ENT ENT exam: Present: mucous membranes moist - Neck Neck exam: Present: normal inspection - Respiratory Respiratory exam: Present: normal lung sounds bilaterally. Absent: respiratory distress - Cardiovascular Cardiovascular Exam: Present: regular rate, normal rhythm. Absent: systolic mu rmur, diastolic murmur, rubs, gallop - GI/Abdominal GI/Abdominal exam: Present: soft, normal bowel sounds. Absent: distended, tenderness - Rectal Rectal exam: Present: deferred - Extremities Exam Extremities exam: Present: normal inspection - Back Exam Back exam: Present: normal inspection - Neurological Exam Neurological exam: Present: alert, oriented X3, CN II-XII intact. Absent: motor sensory deficit - Psychiatric Psychiatric exam: Present: normal affect, normal mood - Skin Skin exam: Present: warm, dry, intact, normal color. Absent: rash ED Course Vital Signs 04/09/19 04/10/19 22:13 01:02 Temperature 97.8 F 97.5 F L Pulse Rate 80 93 H Respiratory 18 18 Rate Blood Pressure 107/70 Blood Pressure 104/53 [Right] O2 Sat by Pulse 96 100 Oximetry ED Medical Decision Making - Lab Data Result diagrams: 04/09/19 04:22 04/09/19 22:58 - Medical Decision Making medically cleared Critical care attestation.: If time is entered above; I have spent that time in minutes in the direct care of this critically ill patient, excluding procedure time. ED Disposition Clinical Impression: Paranoia Disposition: [id number] PSY HOSP/PSY UNIT Is pt being admited?: No Does the pt Need Aspirin: No Condition: Stable Referrals: PRIMARY CARE, [Primary Care Provider] - 3-5 Days
[2019-04-10 00:50] LABS: Alanine Aminotransferase 15 units/L (7-56)
[2019-04-10 00:51] LABS: Amphetamine Screen,Urine PRESUMPTIVE NEGATIVE; Benzodiazepines Screen,Urine PRESUMPTIVE NEGATIVE; Cannabinoid Screen,Urine PRESUMPTIVE NEGATIVE; Cocaine Screen,Urine PRESUMPTIVE NEGATIVE; Methadone Screen,Urine PRESUMPTIVE NEGATIVE; Opiate Screen,Urine PRESUMPTIVE NEGATIVE
[2019-04-10 00:52] LABS: Bilirubin,Direct < 0.2 mg/dL (0-0.2)
[2019-04-10 01:04] LABS: Basophils % (Manual) 0 % (0.0-1.8); Large Platelets 1+; Platelet Estimate Consistent w Auto; Total Cells Counted 100
[2019-04-10] MEDS ORDERED: GLUCOPHAGE PO SCH (08:00)
[2019-04-10] MEDS: HumaLOG SUB-Q SCH ×2 (08:12→13:31)
[2019-04-10 09:59] VITALS: BP 117/61
[2019-04-10] MEDS ORDERED: BABY ASPIRIN PO SCH (10:00)
[2019-04-10] MEDS ORDERED: NORVASC PO SCH (10:00)
[2019-04-10] MEDS ORDERED: NON-FORMULARY (Insulin Detemir [Levemir Vial] 25 UNIT) SQ SCH (22:00)
[2019-04-10] MEDS ORDERED: LANTUS SUB-Q SCH (22:00)
== END 2019-04-10 17:05 | disposition home or self-care (01) ==
LOC: EEVIPCON 21:45 → ED 21:45
DX: F22 Delusional disorders (principal); I10 Essential (primary) hypertension; E11.9 Type 2 diabetes mellitus without complications; F20.0 Paranoid schizophrenia; E78.5 Hyperlipidemia, unspecified; Z79.899 Other long term (current) drug therapy
CPT/HCPCS: 36415; 80048; 80076; 80307; 80320; 81001; 82962; 85007; 85025; 96372; G0480; J1815